=== PATIENT | female | born 1940 | race Caucasian/White ===

== ENCOUNTER 2020-09-02 10:47 | Outpatient (RCR) | payer MEDICARE, OTHER, SELFPAY ==
[2015-11-06 08:45] VITALS: BMI 22.6
== END 2020-09-02 23:59 ==
LOC: IMMUN 10:47
PROVIDERS: Referring Provider Family Medicine; Visit Provider Family Medicine
DX: Z23 Encounter for immunization (principal)
CPT/HCPCS: 0011A; 0012A; 91301

== ENCOUNTER 2023-11-09 17:30 | Outpatient (RCR) | payer SELFPAY | END 2023-11-14 23:59 | LOC: NS 17:30 | DX: Z71.3 Dietary counseling and surveillance (principal) ==

== ENCOUNTER 2024-02-19 12:11 | Outpatient (RCR) | payer SELFPAY | END 2024-03-16 23:59 | LOC: NS 12:11 | DX: Z71.3 Dietary counseling and surveillance (principal) ==

== ENCOUNTER → 2025-05-01 | Outpatient (CLI) | payer SELFPAY | END | disposition home or self-care (01) | LOC: LABSPEC 15:51 | PROVIDERS: Visit Provider Podiatrist | DX: L02.611 Cutaneous abscess of right foot (principal); L03.115 Cellulitis of right lower limb | CPT/HCPCS: 87070; 87075; 87205 ==